=== PATIENT | female | born 1970 | race Caucasian/White ===

== ENCOUNTER 2021-01-28 06:23 | Day surgery (SDC) | payer OTHER ==
[2021-01-22 16:05] VITALS: BMI 29.2
[2021-01-28 07:10] VITALS: TEMP 98.1
[2021-01-28] MEDS ORDERED: LIDOCAINE HCL 2% (20ML MULTI-DOSE VIAL) ONE (07:32)
[2021-01-28] MEDS ORDERED: BUPIVACAINE HCL/PF 0.25% (2.5MG/ML) 10 ML VIAL ONE (07:32)
[2021-01-28] MEDS ORDERED: HYDROmorphone HCL/PF 1 MG/ML VIAL ONE (08:02)
[2021-01-28] MEDS ORDERED: MIDAZOLAM HCL 2 MG/2 ML SINGLE DOSE VIAL ONE (08:02)
[2021-01-28] MEDS ORDERED: LIDOCAINE HCL 2% (50ML VIAL) INF ONE (08:16)
[2021-01-28] MEDS ORDERED: PROPOFOL 20 ML ONE (08:20)
[2021-01-28] MEDS ORDERED: BUPIVACAINE HCL/PF 0.25% (2.5MG/ML) 10 ML VIAL IJ ONE (08:40)
[2021-01-28 09:27] VITALS: BP 102/62; PULSE 68
[2021-01-28] MEDS ORDERED: PROMETHAZINE HCL 25 MG/1 ML VIAL IVPUSH PRN (10:27)
[2021-01-28] MEDS ORDERED: oxyCODONE HCL 5 MG TABLET PO PRN (10:27)
[2021-01-28] MEDS ORDERED: ONDANSETRON 4 MG/2 ML VIAL IVPUSH PRN (10:27)
[2021-01-28] MEDS ORDERED: LACTATED RINGERS SOLUTION 1,000 ML IV SCH (10:30)
== END 2021-01-28 09:45 | disposition home or self-care (01) ==
LOC: FASU 06:23
PROVIDERS: ATTEND Orthopaedic Surgery Hand Surgery
PROC: 0LN50ZZ Release Right Lower Arm and Wrist Tendon, Open Approach (ICD-10-PCS; principal; 2021-01-28 08:31)
DX: M65.4 Radial styloid tenosynovitis [de Quervain] (principal)
CPT/HCPCS: 81025